=== PATIENT | female | born 1990 | race Caucasian/White ===

== ENCOUNTER 2019-10-22 20:49 | Emergency (ER) | payer OTHER, SELFPAY ==
--- NOTE | ~2019-10-22 | US_ITS ---
EXAMINATION: US OB <= 14 weeks fetus DATE: 10/23/2019 00:18 INDICATION: Pelvic cramping. TECHNIQUE: Real-time transabdominal pelvic ultrasound was performed. COMPARISON: None. FINDINGS: The uterus measures 11.9 x 8.0 x 5.7 cm. There is an intrauterine gestational sac. A yolk sac is iden tified. The crown rump length measures 3.1 cm, which correlates with an estimated gestational age of 10 weeks and 0 day(s) (+/-) 6 day(s). heart motion is identified measuring 165 beats per minute (bpm) by M-mode Doppler. There is a small subchorionic hematoma. The ovaries are not visualiz ed. There is no free fluid in the pelvis. IMPRESSION: 1. Single living intrauterine gestation with estimated date of delivery of 05/19/2020. 2. Small subchorionic hematoma. Reviewed, dictated and finalized at location A. IMPRESSION: 1. Single living intrauterine gestation with estimated date of delivery of . 2. Small subchorionic hematoma.
[2019-10-22 20:51] VITALS: BP 120/63; PULSE 75; RESP 16; TEMP 36.6; O2SAT 100
[2019-10-22 21:15] LABS: Basophils Percent Auto 0.3 % (0.2-1.2); Eosinophils Absolute Auto 0.1 K/mm3 (0-0.3); Eosinophils Percent Auto 0.7 % (0-4.4); Hematocrit 40.2 % (37.0-47.0); Hemoglobin 13.9 g/dL (12.0-15.0); Immature Granulocyte Absolute 0.04 K/mm3 (0.00-0.031); Immature Granulocyte Percent A 0.3 % (0-0.5); Lymphocytes Absolute Auto 2.45 K/mm3 (0.9-3.2); Lymphocytes Percent Auto 17.7 % (18.3-44.2); Mean Corpuscular HGB Conc 34.6 g/dl (32-36); Mean Corpuscular Volume 95.5 fl (80-100); Mean Platelet Volume 11.4 fl (7.4-10.4); Monocytes Absolute Auto 0.5 K/mm3 (0.1-0.6); Monocytes Percent Auto 3.8 % (2.6-8.5); Neutrophils Absolute Auto 10.7 K/mm3 (1.3-6.7); Neutrophils Percent Auto 77.2 % (45.5-73.1); Platelet Count Result 236 k/mm3 (150-375); Red Blood Count 4.21 M/mm3 (4.2-5.4); Red Cell Distribution Width 12.1 % (11.5-14.5); White Blood Count 13.9 K/mm3 (4.5-10.0)
[2019-10-22 21:27] LABS: Alanine Aminotransferase 18 U/L (4-35); Alkaline Phosphatase 49 U/L (38-126); Aspartate Amino Transferase 21 U/L (14-36); Bilirubin,Total 0.2 mg/dL (0.2-1.3); Blood Urea Nitrogen 7 mg/dL (7-17); Calcium 9.2 mg/dL (8.4-10.2); Carbon Dioxide 26 mmol/L (22-30); Chloride 104 mmol/L (98-107); Estimated Glomerular Filt Rate > 60; Glucose 118 mg/dL (65-105); Lipase 82 U/L (23-300); Potassium 3.5 mmol/L (3.4-5.0); Sodium 136 mmol/L (137-145)
[2019-10-22 21:27] LABS: Add Urine Microscopic? YES; Amorphous Sediment Urine Few; Appearance Urine Cloudy (Clear); Bacteria Urine Trace /hpf; Bilirubin Urine Negative (Negative); Blood Urine Negative (Negative); Color Urine Yellow (Yellow); Glucose Urine UA Negative (Negative); Ketones Urine Negative (Negative); Leukocyte Esterase Ur Negative LEU/UL (Negative); Mucus Urine Rare /lpf; Nitrate Urine Negative (Negative); Protein Urine Negative (Negative); RBC Urine 0-2 /hpf (0-2); Specific Grav Ur 1.021 (1.001-1.035); Squamous Epithelial Cell Urine Many /hpf (Few); WBC Urine 0-3 /hpf
[2019-10-22 22:57] VITALS: BP 123/71; PULSE 80; RESP 14; O2SAT 99
--- NOTE | 2019-10-22 23:15 | ED.ABDPAIN ---
HPI - Abdominal Pain General Chief Complaint: Abdominal Pain Stated Complaint: 10 wks preg, low abd pain Time Seen by Provider: 10/22/19 23:05 Source: patient Mode of arrival: ambulatory Limitations: no limitations History of Present Illness HPI narrative: This patient is a 29 year old female who presents for evaluation of lower abdominal pain. She states her pain started 2 hours ago and it has been intermittent. She describes her pain as sharp. She denies vaginal discharge or vaginal bleeding. She found out she was last week and her LMP 08/15/19. This is her 4th . MD elicited complaint: abdominal pain Onset (ago): hour(s) (2) Pain Consistency: intermittent Location: suprapubic Quality: sharp Related Data Home Medications Medication Instructions Recorded Confirmed No Home Medications 10/22/19 Allergies Allergy/AdvReac Type Severity Reaction Status Date / Time Sulfa (Sulfonamide Allergy Hives Verified 10/22/19 21:02 Antibiotics) Review of Systems Review of Systems: All systems reviewed & are unremarkable except as noted in HPI and below Constitutional: Constitutional: Denies chills and Denies fever(s) Cardiovascular: Cardiovascular: Denies chest pain Genitourinary: Genitourinary: Denies abnormal vaginal bleeding, Denies hematuria, Denies nocturia, Denies dysuria, Reports pelvic pain and Denies vaginal discharge Musculoskeletal: Musculoskeletal: Denies back pain [facility] Social History Social History (Updated 10/23/19 @ 01:15 by Criss Rios MD) Smoking status: Never smoker Comments Patient denies any medical problems. She had ovarian torsion in the past that required surgery Exam Narrative: Exam Narrative: GENERAL: Well-appearing, well-nourished, and in no acute distress. HEAD: Normocephalic, atraumatic EYES: PERRLA and EOMI, conjunctiva clear without discharge THROAT:Mucous membranes moist, Oropharynx normal without erythema, exudate, peritonsillar swelling or fluctuance NECK: Supple, without lymphadenopathy or mass RESPIRATORY: No respiratory distress, Airway patent, Respirations non-labored, Clear to auscultation without rales, rhonchi or wheeze HEART: Regular rate and rhythm. No murmur heard. Normal peripheral pulses. ABDOMEN: Soft, nontender, nondistended, normal active bowel sounds. No masses. No rebound or guarding, No organomegaly. EXTREMITIES: No edema, normal strength with full range of motion. SKIN: Warm, dry, normal color without rash NEURO: Alert and oriented x3. CN 2-12 grossly intact. No focal deficits. PSYCH: Normal mood and affect. : Speculum Exam - Cervix: Cervical os closed Course Reevaluation(s) Reevaluation #1: I have discussed with patient that ultrasound shows IUP with subchorionic hemorrhage. I Discussed pelvic rest and follow up . She was given bleeding precautions. Date: 10/23/19 Time: 01:16 Vital Signs Vital signs: Vital Signs Temperature 97.9 F 10/22/19 20:51 Pulse Rate 75 10/22/19 20:51 Respiratory Rate 16 10/22/19 20:51 Blood Pressure 120/63 10/22/19 20:51 Pulse Oximetry 100 10/22/19 20:51 Temperature 98.6 F 10/23/19 01:26 Pulse Rate 67 10/23/19 01:03 Respiratory Rate 14 10/23/19 01:03 Blood Pressure 112/75 10/23/19 01:03 Pulse Oximetry 98 10/23/19 01:03 MDM - Abdominal Pain Lab Data Attestation: I reviewed the patient's lab results. Result diagrams: 10/22/19 21:10 10/22/19 21:10 Labs: Lab Results 10/22/19 10/22/19 10/22/19 Range/Units 21:10 21:10 21:17 WBC 13.9 H (4.5-10.0) K/mm3 RBC 4.21 (4.2-5.4) M/mm3 Hgb 13.9 (12.0-15.0) g/dL Hct 40.2 (37.0-47.0) % MCV 95.5 (80-100) fl MCH 33.0 (26-34) pg MCHC 34.6 (32-36) g/dl RDW 12.1 (11.5-14.5) % Plt Count 236 (150-375) k/mm3 MPV 11.4 H (7.4-10.4) fl Immature Gran % (Auto) 0.3 (0-0.5) % Neut % (Auto) 77.2 H (45.5-73.1) % Lymph % (Aut
[2019-10-22] MEDS: LACTATED RINGERS 1,000 ML 999 ML IV CONT (23:21)
[2019-10-22 23:51] VITALS: TEMP 36.6
--- NOTE | 2019-10-23 00:55 | PC.NURSE ---
Patient states she is tired of waiting and wants to leave. IWONA Rios made aware.
[2019-10-23 01:03] VITALS: BP 112/75; PULSE 67; RESP 14; O2SAT 98
[2019-10-23 01:26] VITALS: TEMP 37
== END 2019-10-23 01:27 | disposition home or self-care (01) ==
PROVIDERS: Emergency Provider General Practice
DX: O20.0 Threatened abortion (principal); Z3A.10 10 weeks gestation of pregnancy
CPT/HCPCS: 36415; 76801; 80053; 81001; 81025; 83690; 84702; 85025; 85461; 96361; 96374; 99284; J0131; J7120